=== PATIENT | male | born 1985 | race Caucasian/White ===

== ENCOUNTER 2018-11-30 22:33 | Emergency (ER) | payer OTHER ==
[~2018-11-30] VITALS: Ht 182.9 cm; Wt 108.9 kg
[~2018-11-30 22:33] MED LIST: ACEASPCAF PO; ACET500 PO; ALBU90I INH; AZIT250 PO; BUSP5 PO; CODGUAEL PO; CYCL10 PO; DIAZ5 PO; FLUO20 PO; HYDACE5 PO; IBUP400 PO; ISODICACE PO; LIDOCAINE700 MG TP; META800 PO; MULVITMIND PO; NAPR500 PO; NEOPOLHYDS OT; NIAC250ER PO; NIAC500 PO; Oxycodone-Apap1 EAC3; PRAZ5 PO; PRED20 PO; PROM25 PO; QUET25 PO; RXANTBENOT AU; SILSUL1TC TOP; SUMA25 PO; Ultram50 MG PO; Venlafaxine HCl75 M1 PO; ZIPR80 PO; ZOLP10 PO
[2018-12-01] MEDS ORDERED: Imitrex50 MG (01:18)
[2018-12-01] MEDS ORDERED: GABA300 PO (01:18)
[2018-12-01] MEDS ORDERED: LATUDA120 MG PO (01:20)
== END 2018-12-01 03:12 | disposition home or self-care (01) ==
LOC: ER 22:33
DX: S20.211A Contusion of right front wall of thorax, initial encounter (principal); R51 Headache; Z87.891 Personal history of nicotine dependence; Z79.899 Other long term (current) drug therapy; W18.2XXA Fall in (into) shower or empty bathtub, initial encounter
CPT/HCPCS: 71101; 96361; 96374; 96375; 99283-25; J0780; J1100; J1200; J1630; J1885; J2405; J7030

== ENCOUNTER 2019-03-08 10:04 | Emergency (ER) | payer OTHER ==
[~2019-03-08] VITALS: Ht 193 cm; Wt 119.3 kg
[~2019-03-08 10:04] MED LIST changes: +GABA400 PO; +Imitrex50 MG; +LATUDA120 MG PO
[2019-03-08] MEDS ORDERED: BUPR150ER PO (10:08)
[2019-03-08] MEDS ORDERED: CLON.3 PO (10:10)
[2019-03-08] MEDS ORDERED: BUSP10 PO (10:10)
[2019-03-08] MEDS ORDERED: PARO30 PO (10:11)
[2019-03-08] MEDS ORDERED: LITH300C PO ×2 (10:11)
[2019-03-08] MEDS ORDERED: NICO2 PO (10:12)
[2019-03-08] MEDS ORDERED: SUMA25 PO (10:13)
[2019-03-08] MEDS ORDERED: TEMA30 PO (10:13)
[2019-03-08] MEDS ORDERED: Levitra20 MG PO (10:14)
[2019-03-08] MEDS ORDERED: TOPI25C PO (10:14)
[2019-03-08 10:48] LABS: BASOPHILS ABSOLUTE AUTO 0.04 K/mm3 (0.00-0.23); BASOPHILS PERCENT AUTO 0 % (0-2); EOSINOPHILS ABSOLUTE AUTO 0.16 K/mm3 (0.00-0.68); EOSINOPHILS PERCENT AUTO 2 % (0-6); Hemoglobin 14.6 g/dL (13.5-17.5); IMMATURE GRAN ABSOLUTE AUTO 0.04 K/mm3 (0.00-0.10); IMMATURE GRAN PERCENT AUTO 0 % (0-1); LYMPHOCYTES ABSOLUTE AUTO 3.11 K/mm3 (0.84-5.20); LYMPHOCYTES PERCENT AUTO 32 % (21-46); MONOCYTES ABSOLUTE AUTO 0.82 K/mm3 (0.16-1.47); MONOCYTES PERCENT AUTO 8 % (4-13); Mean Corpuscular HGB 31.1 pg (26.0-34.0); Mean Corpuscular Volume 92 fL (80-100); Mean Platelet Volume 10.3 fL (9.1-12.4); NEUTROPHILS ABSOLUTE AUTO 5.66 K/mm3 (1.96-9.15); NEUTROPHILS PERCENT AUTO 58 % (41-73); Platelet Count 313 K/mm3 (150-400); RDW Coefficient Variation 11.9 % (11.7-14.2); RDW Standard Deviation 40.1 fL (35.1-46.3); White Blood Cell Count 9.83 K/mm3 (4.00-11.30)
[2019-03-08 11:00] LABS: Alanine Aminotransfer (ALT/SGP 66 U/L (12-78); Albumin, Blood 4.2 g/dL (3.4-5.0); Albumin/Globulin Ratio 1.2 (0.8-1.8); Alk Phos 128 U/L (50-136); Anion Gap 8 mmol/L (6-16); Aspartate Aminotrans (AST/SGOT 34 U/L (12-37); Bilirubin, Total 0.8 mg/dL (0.1-1.0); Blood Urea Nitrogen 14 mg/dL (8-24); Bun/Creatinine Ratio 14.4 (12.0-20.0); CO2, Blood 20 mmol/L (21-32); Calcium, Blood 8.7 mg/dL (8.5-10.1); Chloride, Blood 112 mmol/L (98-108); Creatinine, Blood 0.97 mg/dL (0.60-1.20); Globulin, Blood 3.5 g/dL (2.2-4.0); Glomerular Filtration Rate >60 (60-); Glucose, Blood 90 mg/dL (70-99); Potassium, Blood 4.1 mmol/L (3.5-5.5); Sodium, Blood 140 mmol/L (136-145); Total Protein, Blood 7.7 g/dL (6.4-8.2)
--- NOTE | 2019-03-08 12:17 | NUR ---
Patient is lying in bed and alert. Patient tells me about the events that lead up to his arrival in the ER, about his 3 children, about his service in the [employer] and about his family unit complications. I listen empathically, explore amish beliefs, provide a calming presence and prayer. Patient responds well and voices appreciation for the visit.
[2019-03-08] MEDS ORDERED: Norco 5-325 Ta1 EACH PO (12:44)
[2019-03-08] MEDS ORDERED: IBUP800 PO (12:44)
== END 2019-03-08 13:00 | disposition home or self-care (01) ==
LOC: ER 10:04
PROVIDERS: Emergency Medicine
DX: S16.1XXA Strain of muscle, fascia and tendon at neck level, initial encounter (principal); T14.8XXA Other injury of unspecified body region, initial encounter; V89.2XXA Person injured in unspecified motor-vehicle accident, traffic, initial encounter; Z88.8 Allergy status to other drugs, medicaments and biological substances; Z91.018 Allergy to other foods; Z79.899 Other long term (current) drug therapy; G43.909 Migraine, unspecified, not intractable, without status migrainosus; F41.9 Anxiety disorder, unspecified; Z87.891 Personal history of nicotine dependence
CPT/HCPCS: 29505; 70450; 71260; 72125; 73562-RT; 74177; 80053; 85025; 90471; 90714; 93005; 93010; 96361-59; 96374-59; 96375-59; 99285-25; J1885; J2060; J2405; J3010; J7030; Q9967

== ENCOUNTER 2019-03-24 14:47 | Emergency (ER) | payer OTHER ==
[~2019-03-24] VITALS: Ht 182.9 cm; Wt 122.5 kg
[~2019-03-24 14:47] MED LIST changes: +BUPR150ER PO; +BUSP10 PO; +CLON.3 PO; +IBUP800 PO; +LITH300C PO; +Levitra20 MG PO; +NICO2 PO; +Norco 5-325 Ta1 EACH PO; +PARO30 PO; +TEMA30 PO; +TOPI25C PO
[2019-03-24] MEDS ORDERED: ACETAMINOPHEN500 MG PO (16:47)
== END 2019-03-24 17:17 | disposition home or self-care (01) ==
LOC: ER 14:47
DX: M25.561 Pain in right knee (principal); G43.909 Migraine, unspecified, not intractable, without status migrainosus; F41.9 Anxiety disorder, unspecified; Z88.8 Allergy status to other drugs, medicaments and biological substances; Z91.018 Allergy to other foods; Z79.899 Other long term (current) drug therapy; Z87.891 Personal history of nicotine dependence; W18.30XA Fall on same level, unspecified, initial encounter
CPT/HCPCS: 29505; 99283-25

== ENCOUNTER 2019-09-02 19:28 | Emergency (ER) | payer OTHER ==
[~2019-09-02] VITALS: Ht 182.9 cm; Wt 113.4 kg
[~2019-09-02 19:28] MED LIST changes: +ACETAMINOPHEN500 MG PO
[2019-09-02 20:06] LABS: BASOPHILS ABSOLUTE AUTO 0.04 K/mm3 (0.00-0.23); BASOPHILS PERCENT AUTO 0 % (0-2); EOSINOPHILS ABSOLUTE AUTO 0.09 K/mm3 (0.00-0.68); EOSINOPHILS PERCENT AUTO 1 % (0-6); Hematocrit 41.2 % (37.0-53.0); Hemoglobin 13.6 g/dL (13.5-17.5); IMMATURE GRAN ABSOLUTE AUTO 0.02 K/mm3 (0.00-0.10); IMMATURE GRAN PERCENT AUTO 0 % (0-1); LYMPHOCYTES ABSOLUTE AUTO 3.15 K/mm3 (0.84-5.20); LYMPHOCYTES PERCENT AUTO 32 % (21-46); MONOCYTES PERCENT AUTO 5 % (4-13); Mean Corpuscular HGB 31.3 pg (26.0-34.0); Mean Corpuscular Volume 95 fL (80-100); Mean Platelet Volume 10.3 fL (9.1-12.4); NEUTROPHILS ABSOLUTE AUTO 6.19 K/mm3 (1.96-9.15); NEUTROPHILS PERCENT AUTO 62 % (41-73); Platelet Count 245 K/mm3 (150-400); RDW Coefficient Variation 12.3 % (11.7-14.2); RDW Standard Deviation 42.8 fL (35.1-46.3); Red Blood Cell Count 4.34 M/mm3 (4.30-5.90); White Blood Cell Count 9.99 K/mm3 (4.00-11.30)
[2019-09-02 20:24] LABS: Alanine Aminotransfer (ALT/SGP 32 U/L (12-78); Albumin/Globulin Ratio 1.1 (0.8-1.8); Alk Phos 112 U/L (50-136); Anion Gap 4 mmol/L (6-16); Aspartate Aminotrans (AST/SGOT 23 U/L (12-37); Bilirubin, Total 0.9 mg/dL (0.1-1.0); Blood Urea Nitrogen 7 mg/dL (8-24); Bun/Creatinine Ratio 6.7 (12.0-20.0); CO2, Blood 28 mmol/L (21-32); Calcium, Blood 8.8 mg/dL (8.5-10.1); Chloride, Blood 109 mmol/L (98-108); Creatinine, Blood 1.05 mg/dL (0.60-1.20); Globulin, Blood 3.5 g/dL (2.2-4.0); Glomerular Filtration Rate >60 (60-); Glucose, Blood 106 mg/dL (70-99); Potassium, Blood 3.5 mmol/L (3.5-5.5); Sodium, Blood 141 mmol/L (136-145); Total Protein, Blood 7.5 g/dL (6.4-8.2)
[2019-09-25] MEDS ORDERED: Percocet 5-3251 EACH PO (16:27)
[2019-09-25] MEDS ORDERED: CYCL10 PO (16:27)
== END 2019-09-02 21:26 | disposition home or self-care (01) ==
LOC: ER 19:28
PROVIDERS: Emergency Medicine
DX: G43.909 Migraine, unspecified, not intractable, without status migrainosus (principal); F41.9 Anxiety disorder, unspecified; F43.10 Post-traumatic stress disorder, unspecified; F17.220 Nicotine dependence, chewing tobacco, uncomplicated; Z88.8 Allergy status to other drugs, medicaments and biological substances; Z79.899 Other long term (current) drug therapy
CPT/HCPCS: 36415; 80053; 85025; 96374; 96375; 99283-25; J1885; J2405; J2765; Q0163

== ENCOUNTER 2019-12-30 15:35 | Emergency (ER) | payer OTHER ==
[~2019-12-30] VITALS: Ht 182.9 cm; Wt 113.4 kg
[~2019-12-30 15:35] MED LIST changes: +Percocet 5-3251 EACH PO
[2019-12-30] MEDS ORDERED: Amoxicillin875 MG PO (16:00)
[2019-12-30] MEDS ORDERED: Norco 5-325 Ta1 EACH PO (16:00)
== END 2019-12-30 16:05 | disposition home or self-care (01) ==
LOC: ER 15:35
DX: K08.89 Other specified disorders of teeth and supporting structures (principal); F17.210 Nicotine dependence, cigarettes, uncomplicated; Z79.899 Other long term (current) drug therapy
CPT/HCPCS: 99282

== ENCOUNTER 2020-04-01 13:03 | Emergency (ER) | payer OTHER ==
[~2020-04-01] VITALS: Ht 182.9 cm; Wt 120.7 kg
[~2020-04-01 13:03] MED LIST changes: +Amoxicillin875 MG PO
== END 2020-04-01 20:38 | disposition left against medical advice (07) ==
LOC: ER 13:03
DX: Z53.21 Procedure and treatment not carried out due to patient leaving prior to being seen by health care provider (principal)